=== PATIENT | male | born 1975 | race Caucasian/White ===

== ENCOUNTER 2018-03-07 19:51 | Emergency (ER) | payer MEDICAID ==
[~2018-03-07] VITALS: Ht 162.6 cm; Wt 70.3 kg
[~2018-03-07 19:51] MED LIST: AMPH15TA2 PO; DEXT5TAB15 PO
[2018-03-07] MEDS ORDERED: LIDOCAINE 1%-EPI 1:100,000 20 ML VIAL ONE (20:26)
[2018-03-07] MEDS ORDERED: LIDOCAINE 1%-EPI 1:100,000 20 ML VIAL TP ONE (20:30)
--- NOTE | 2018-03-07 20:40 | NUR ---
DR ORELLANA INTO SUTURE PATIENT
--- NOTE | 2018-03-07 20:53 | NUR ---
Patient discharged to home in stable conditon. Written and verbal after care instructions given. Patient verbalizes understanding of instructions. WALKED OUT OF ER WITH NO DISTRESS NOTED
[2018-03-07 20:55] VITALS: BP 138/98
[2018-03-07] MEDS ORDERED: NEOMY/BACITRA/POLYMYXIN B OINT UD PACKET TP ONE (21:00)
== END 2018-03-07 20:56 | disposition home or self-care (01) ==
LOC: ER 19:53
DX: S51.812A Laceration without foreign body of left forearm, initial encounter (principal); F17.210 Nicotine dependence, cigarettes, uncomplicated; Z90.49 Acquired absence of other specified parts of digestive tract; W26.9XXA Contact with unspecified sharp object(s), initial encounter; Y93.89 Activity, other specified; Y92.89 Other specified places as the place of occurrence of the external cause; Y99.8 Other external cause status
CPT/HCPCS: A4217; A4663; J3490

== ENCOUNTER 2018-03-10 13:10 | Emergency (ER) | payer MEDICAID ==
[~2018-03-10] VITALS: Ht 157.5 cm; Wt 65.8 kg
--- NOTE | 2018-03-10 13:18 | NUR ---
PT. Examine by Dr. Garza
== END 2018-03-10 13:28 | disposition home or self-care (01) ==
LOC: ER 13:13
DX: S41.012D Laceration without foreign body of left shoulder, subsequent encounter (principal); Z48.01 Encounter for change or removal of surgical wound dressing; Z90.49 Acquired absence of other specified parts of digestive tract; F17.210 Nicotine dependence, cigarettes, uncomplicated; X58.XXXD Exposure to other specified factors, subsequent encounter
CPT/HCPCS: 99281; A4663

== ENCOUNTER 2018-03-18 10:47 | Emergency (ER) | payer MEDICAID ==
[~2018-03-18] VITALS: Ht 157.5 cm; Wt 65.8 kg
--- NOTE | 2018-03-18 11:07 | NUR ---
Sutures removed by MD. Patient discharged to home in stable conditon. Written and verbal after care instructions given to patient. Patient verbalizes understanding of instructions.
== END 2018-03-18 11:08 | disposition home or self-care (01) ==
LOC: ER 10:47
DX: Z48.02 Encounter for removal of sutures (principal); F17.210 Nicotine dependence, cigarettes, uncomplicated; Z90.49 Acquired absence of other specified parts of digestive tract
CPT/HCPCS: 99281; A4663

== ENCOUNTER 2018-08-04 11:38 | Emergency (ER) | payer SELFPAY ==
[~2018-08-04] VITALS: Ht 160 cm; Wt 72.6 kg
--- NOTE | 2018-08-04 12:26 | NUR ---
DR ORDOÑEZ AT THE BEDSIDE FOR MSE.
[2018-08-04] MEDS ORDERED: IOHEXOL 300MG/ML 100 ML INFUS..BTL ONE (12:40)
[2018-08-04] MEDS ORDERED: SWABABLE VALVE TRANSFER SET EA MC ONE (12:40)
[2018-08-04] MEDS ORDERED: IOPAMIDOL 15 ML VIAL IT ONE (12:40)
[2018-08-04] MEDS ORDERED: IV NORMAL SALINE 1000 ML BAG IV ONE (12:45)
[2018-08-04 12:49] LABS: BASOPHILS % (AUTO) 0.7 % (0.0-2.0); HEMATOCRIT 45.7 % (36.7-47.1); HEMOGLOBIN 15.6 g/dL (12.5-16.3); LYMPHOCYTES # (AUTO) 1.3 K/uL (20.0-40.0); LYMPHOCYTES % (AUTO) 15.7 % (20.5-51.5); MEAN CORPUSCULAR HEMOGLOBIN 31.8 uug (23.8-33.4); MEAN CORPUSCULAR HGB CONC 34 g/dL (32.5-36.3); MEAN CORPUSCULAR VOLUME 93.3 fL (73.0-96.2); MONOCYTES # (AUTO) 0.7 K/uL (2.0-10.0); MONOCYTES % (AUTO) 8.4 % (0.0-11.0); NEUTROPHILS # (AUTO) 6.1 K/uL (1.8-8.9); NEUTROPHILS % (AUTO) 73.2 % (38.5-71.5); PLATELET COUNT (AUTO) 223 K/uL (152-348); WHITE BLOOD COUNT (AUTO) 8.3 K/uL (3.6-10.2)
[2018-08-04 12:50] LABS: BASOPHILS # (AUTO) 0.1 K/uL (0.0-8.0); EOSINOPHILS # (AUTO) 0.2 K/uL (0.0-0.7)
[2018-08-04 12:58] LABS: CREATININE 0.9 mg/dL (0.6-1.3); POTASSIUM 4.2 mmol/L (3.5-5.1)
--- NOTE | 2018-08-04 13:00 | NUR ---
PT signed consent for iv contrast.
[2018-08-04 13:04] LABS: BILIRUBIN,DIRECT 0.2 mg/dL (0.0-0.2); BILIRUBIN,TOTAL 0.8 mg/dL (0.2-1.0)
--- NOTE | 2018-08-04 14:52 | NUR ---
Patient discharged to home in stable conditon. Written and verbal after care instructions given. Patient verbalizes understanding of instructions.
[2018-08-04 14:57] VITALS: BP 132/67
== END 2018-08-04 14:58 | disposition home or self-care (01) ==
LOC: ER 11:38
DX: S32.010A Wedge compression fracture of first lumbar vertebra, initial encounter for closed fracture (principal); S22.32XA Fracture of one rib, left side, initial encounter for closed fracture; S30.1XXA Contusion of abdominal wall, initial encounter; F17.210 Nicotine dependence, cigarettes, uncomplicated; Z90.49 Acquired absence of other specified parts of digestive tract; Z79.899 Other long term (current) drug therapy; V59.9XXA Occupant (driver) (passenger) of pick-up truck or van injured in unspecified traffic accident, initial encounter; Y93.89 Activity, other specified; Y92.410 Unspecified street and highway as the place of occurrence of the external cause; Y99.8 Other external cause status
CPT/HCPCS: 36415; 74177; 80048; 80076; 83690; 84484; 85025; 85730; 99284; Q9967; 70030-TC; A4663; J7030